=== PATIENT | female | born 1940 | race Caucasian/White ===

== ENCOUNTER 2016-12-25 07:00 | Emergency (ER) | payer MEDICARE ==
[~2016-12-25] VITALS: Ht 172.7 cm; Wt 74.0 kg
[~2016-12-25 07:00] MED LIST: ALPR0.25 PO; ASPI-496 PO; ATEN25TA PO; EZET1TAB4 PO; PANT40TA5 PO; POTA10TA5 PO; TRIA1TAB5 PO; TRIAMTERENE PO; TURM500C7 PO
[2016-12-25 09:53] VITALS: BP 130/71
== END 2016-12-25 09:56 | disposition home or self-care (01) ==
LOC: ED 08:51
DX: M79.662 Pain in left lower leg (principal); E78.00 Pure hypercholesterolemia, unspecified; I10 Essential (primary) hypertension
CPT/HCPCS: 36415; 80047

== ENCOUNTER 2017-02-16 21:19 | Emergency (ER) | payer MEDICARE ==
[~2017-02-16] VITALS: Ht 172.7 cm; Wt 73.1 kg
[2017-02-16] MEDS ORDERED: ONDANSETRON 2MG/ML, 2ML IVPush ONE (22:00)
[2017-02-16] MEDS ORDERED: SODIUM CHLORIDE 0.9% 1,000ML IVBOLUS ONE (22:00)
[2017-02-16] MEDS ORDERED: FAMOTIDINE 20 MG/2 ML IVP ONE (22:00)
[2017-02-16 22:29] LABS: ASPARTATE AMINO TRANSFERASE 24 U/L (15-37); BLOOD UREA NITROGEN 20 mg/dL (7-18)
[2017-02-16 22:34] LABS: IS PT STATUS REG ER OR PRE ER? YES
[2017-02-16 23:58] VITALS: BP 161/62
== END 2017-02-17 00:11 | disposition home or self-care (01) ==
LOC: ED 22:20
DX: R11.2 Nausea with vomiting, unspecified (principal); K21.9 Gastro-esophageal reflux disease without esophagitis; Z85.3 Personal history of malignant neoplasm of breast; Z90.10 Acquired absence of unspecified breast and nipple
CPT/HCPCS: 36415; 71010; 80053; 83690; 84484; 85025; 93005; 96361; 96374; 96375; 99285; J2405; J7030; S0028

== ENCOUNTER → 2018-11-28 | Outpatient (CLI) | payer MEDICARE ==
[~2018-11-28] MED LIST changes: +EZET1TAB30 PO; -EZET1TAB4 PO
== END | disposition home or self-care (01) ==
LOC: CFH 13:58
PROVIDERS: ATTEND Nurse Practitioner Family
DX: G31.9 Degenerative disease of nervous system, unspecified (principal); F02.80 Dementia in other diseases classified elsewhere, unspecified severity, without behavioral disturbance, psychotic disturbance, mood disturbance, and anxiety
CPT/HCPCS: 70450